=== PATIENT | male | born 1985 | race Caucasian/White ===

== ENCOUNTER 2019-01-06 22:07 | Inpatient (IN) | payer OTHER ==
[~2019-01-06] VITALS: Ht 167.6 cm; Wt 105.2 kg
[2019-01-07] MEDS ORDERED: ONDANSETRON 4 MG INJ IV PRN (01:00)
[2019-01-07] MEDS ORDERED: ACETAMINOPHEN 325 MG TAB PO PRN ×2 (01:00→04:00)
--- NOTE | 2019-01-07 02:18 | ERD ---
ER Documentation Chief Complaint Chief Complaint C/O LT SIDED CP X1 WEEK, FELT FAINT TODAY X3 EPISODES W/ LT ARM NUMBNESS HPI This is a 33-year-old male with complaints of left-sided chest pain for 1 week. He said he almost passed out today. Patient has history of endocarditis with residual cardiomyopathy. Denies any fevers or chills. Chest pain was pressure- like substernal non-positional nonexertional no exacerbating alleviating factors. Tended to come in waves of 10 to 15 minutes and was followed by this. The feeling like he was going to pass out. ROS All systems reviewed and are negative except as per history of present illness. Medications Home Meds No Active Prescriptions or Reported Meds Allergies Allergies: Coded Allergies: No Known Allergy (Verified Allergy, Unknown, 05/26/08) PMhx/Soc History of Surgery: No Anesthesia Reaction: No Hx Neurological Disorder: No Hx Respiratory Disorders: No Hx Cardiac Disorders: Yes (HEART MURMUR) Hx Psychiatric Problems: No Hx Miscellaneous Medical Probl: No Hx Alcohol Use: No Hx Substance Use: No Hx Tobacco Use: No Smoking Status: Never smoker Physical Exam Vitals Vital Signs Date Temp Pulse Resp B/P (MAP) Pulse Ox O2 O2 Flow FiO2 Time Delivery Rate 01/06/19 98.5 83 20 129/83 98 Room Air 23:10 (98) 01/06/19 98.5 84 20 129/83 98 22:22 (98) Physical Exam Const: No acute distress Head: Atraumatic Eyes: Normal Conjunctiva ENT: Normal External Ears, Nose and Mouth. Neck: Full range of motion. No meningismus. Resp: Clear to auscultation bilaterally Cardio: Regular rate and rhythm, no murmurs Abd: Soft, non tender, non distended. Normal bowel sounds Skin: No petechiae or rashes Back: No midline or flank tenderness Ext: No cyanosis, or edema Neur: Awake and alert Psych: Normal Mood and Affect Result Diagram: 01/06/196 01/06/196 Results 24 hrs Laboratory Tests Test 01/06/19 23:26 White Blood Count 10.2 10^3/ul Red Blood Count 4.69 10^6/ul Hemoglobin 13.8 g/dl Hematocrit 41.3 % Mean Corpuscular Volume 88.1 fl Mean Corpuscular Hemoglobin 29.4 pg Mean Corpuscular Hemoglobin Concent 33.4 g/dl Red Cell Distribution Width 12.4 % Platelet Count 323 10^3/UL Mean Platelet Volume 9.4 fl Immature Granulocytes % 0.400 % Neutrophils % 52.8 % Lymphocytes % 35.9 % Monocytes % 7.6 % Eosinophils % 2.9 % Basophils % 0.4 % Nucleated Red Blood Cells % 0.0 /100WBC Immature Granulocytes # 0.040 10^3/ul Neutrophils # 5.4 10^3/ul Lymphocytes # 3.7 10^3/ul Monocytes # 0.8 10^3/ul Eosinophils # 0.3 10^3/ul Basophils # 0.0 10^3/ul Nucleated Red Blood Cells # 0.0 10^3/ul Sodium Level 141 mmol/L Potassium Level 4.2 mmol/L Chloride Level 104 mmol/L Carbon Dioxide Level 27 mmol/L Anion Gap 10 Blood Urea Nitrogen 16 mg/dl Creatinine 0.88 mg/dl Est Glomerular Filtrat Rate mL/min > 60 mL/min Glucose Level 111 mg/dl Calcium Level 9.2 mg/dl Total Bilirubin 0.7 mg/dl Direct Bilirubin 0.00 mg/dl Indirect Bilirubin 0.7 mg/dl Aspartate Amino Transf (AST/SGOT) 27 IU/L Alanine Aminotransferase (ALT/SGPT) 54 IU/L Alkaline Phosphatase 100 IU/L Troponin I 0.017 ng/ml B-Type Natriuretic Peptide 204 PG/ML Total Protein 7.6 g/dl Albumin 4.5 g/dl Globulin 3.10 g/dl Albumin/Globulin Ratio 1.45 Current Medications Medications Dose Sig/Dereje Start Time Status Last (Trade) Ordered Route PRN Stop Time Admin Dose Reason Admin Ondansetron 4 mg ER BRIDGE 01/07/19 HCl (Zofran PRN IV 01:00 01/08/19 Inj) NAUSEA/VOMITI 00:59 NG 650 mg ER BRIDGE 01/07/19 Acetaminophen PRN PO 01:00 01/08/19 (Tylenol .MILD PAIN 00:59 Tab) 1-3 OR TEMP Procedures/MDM EKG: Rate/Rhythm: Normal Sinus Rhythm QRS, ST, T-waves: T wave inversions in V5 and V6 Impression: Borderline EKG Chest X-ray 1V Interpreted by me: Soft Tissue: No acute abnorma lities Bones: No acute abnormalities Mediastinum/Cardiac Silhouette/Lungs: No acute abnormalities Medical decision making: Patient's symptoms are concerning for cardiac cause will require inpatient workup and continuous monitoring. Further w/u for ischemia, arrhythmia, PE or dissection will be deferred to the inpatient team. Accepting Care Team: Current data and ongoing care discussed. Time: 12 AM Primary Provider: Dr. Gill who is on-call for primary Consulting: Deferred to inpatient team Outstanding Data: none Departure Diagnosis: Primary Impression: Chest pain Chest pain type: unspecified Qualified Codes: R07.9 - Chest pain, unspecified Condition: Serious HANK LINDSAY Jan 07, 2019 02:18
[2019-01-07 04:00] VITALS: BP 113/72; PULSE 69; RESP 20
[2019-01-07] MEDS ORDERED: NACL 0.9% 3 ML SYG IV SCH (04:00)
[2019-01-07] MEDS ORDERED: NITROGLYCERIN (SL) 0.4 MG TAB SL PRN (04:00)
[2019-01-07 04:01] VITALS: Ht 167.6 cm; Wt 105.2 kg
[2019-01-07 07:27] VITALS: BP 98/64; PULSE 72; RESP 18
--- NOTE | 2019-01-07 10:30 | HP ---
Date/Time of Note Date/Time of Note DATE: 01/07/19 TIME: 10:29 Assessment/Plan VTE Prophylaxis Risk score (from Ns)>0 risk: 1 SCD applied (from [facility] – [place], [place]): No SCD contraindicated: other Pharmacological prophylaxis: LMWH Lines/Catheters IV C[facility]ter Type (from [facility] Saline Lock Assessment/Plan Hospital Course 1) chest pain - acute coronary syndrome ruled out by negative enzymes - patient stable to go home to follow up with his regular physician. Result Diagram: 01/07/19 0543 01/07/19 0543 Results 24hrs Laboratory Tests Test 01/06/19 23:26 01/07/19 05:43 White Blood Count 10.2 8.9 Red Blood Count 4.69 L 4.65 L Hemoglobin 13.8 L 13.7 L Hematocrit 41.3 L 41.0 L Mean Corpuscular Volume 88.1 88.2 Mean Corpuscular Hemoglobin 29.4 29.5 Mean Corpuscular Hemoglobin Concent 33.4 33.4 Red Cell Distribution Width 12.4 12.4 Platelet Count 323 296 Mean Platelet Volume 9.4 9.5 Immature Granulocytes % 0.400 0.200 Neutrophils % 52.8 49.7 Lymphocytes % 35.9 38.3 Monocytes % 7.6 7.9 Eosinophils % 2.9 3.5 Basophils % 0.4 0.4 Nucleated Red Blood Cells % 0.0 0.0 Immature Granulocytes # 0.040 H 0.020 Neutrophils # 5.4 4.4 Lymphocytes # 3.7 H 3.4 H Monocytes # 0.8 0.7 Eosinophils # 0.3 0.3 Basophils # 0.0 0.0 Nucleated Red Blood Cells # 0.0 0.0 Sodium Level 141 139 Potassium Level 4.2 4.1 Chloride Level 104 105 Carbon Dioxide Level 27 25 Anion Gap 10 9 Blood Urea Nitrogen 16 13 Creatinine 0.88 0.86 Est Glomerular Filtrat Rate mL/min > 60 > 60 Glucose Level 111 97 Calcium Level 9.2 9.2 Total Bilirubin 0.7 Direct Bilirubin 0.00 Indirect Bilirubin 0.7 Aspartate Amino Transf (AST/SGOT) 27 Alanine Aminotransferase (ALT/SGPT) 54 Alkaline Phosphatase 100 Troponin I 0.017 0.022 B-Type Natriuretic Peptide 204 H Total Protein 7.6 Albumin 4.5 Globulin 3.10 Albumin/Globulin Ratio 1.45 Creatine Kinase 78 Creatine Kinase Index 1.8 Creatinine Kinase MB (Mass) 1.39 HPI/ROS Admit Date/Time Admit Date/Time Jan 07, 2019 at 00:39 Hx of Present Illness Patient without significant medical problems comes in with 5 days of pain in the chest that he characterize as pressure but is tender to palpation. He denies any associated shortness of breath or nausea or vomiting. Patient is currently chest pain free. PMH/Family/Social Past Medical History Medications Current Medications Acetaminophen (Tylenol Tab) 650 mg Q4H PRN PO MILD PAIN(1-3)OR ELEVATED TEMP; Start 01/07/19 at 04:00 Nitroglycerin (Nitroglycerin (Sl Tab) 0.4 Mg) 1 tab Q5M PRN SL ANGINA; Start 01/07/19 at 04:00 IV Flush (NS 3 ml) 3 ml Q8H and PRN adm IV ; Start 01/07/19 at 04:00 Coded Allergies: No Known Allergy (Verified Allergy, Unknown, 05/26/08) Social History Smoking Status: Never smoker Exam/Review of Systems Vital Signs Vitals Vital Signs Date Temp Pulse Resp B/P (MAP) Pulse Ox O2 O2 Flow FiO2 Time Delivery Rate 01/07/19 98.7 72 18 98/64 (75) 96 Room Air 07:27 Intake and Output 01/06/19 01/06/19 01/07/19 1515:00 23:00 07:00 IntakeIntake Total 250 ml BalanceBalance 250 ml Exam Constitutional: well developed Head: normocephalic, atraumatic Neck: supple Respiratory: diminished breath sounds Cardiovascular: regular rate and rhythm Gastrointestinal: soft, non-tender Extremities: normal pulses FRANNIE MAN Jan 07, 2019 10:30
--- NOTE | 2019-01-07 10:32 | DS ---
Date/Time of Note Date/Time of Note DATE: 01/07/19 TIME: 10:30 Discharge Summary Admission/Discharge Info Admit Date/Time Jan 07, 2019 at 00:39 Discharge Date/Time 01/07/19 Discharge Diagnosis 1) chest pain - acute coronary syndrome ruled out by negative enzymes - patient stable to go home to follow up with his regular physician. Patient Condition: Fair Consults none Hx of Present Illness Patient without significant medical problems comes in with 5 days of pain in the chest that he characterize as pressure but is tender to palpation. He denies any associated shortness of breath or nausea or vomiting. Patient is currently chest pain free. Hospital Course Patient comes in with chest pain. He had negative troponins and his chest pain had resolved. Patient is stable and will go home to follow up with his regular physician. Patient did have a minor elevation in BNP and I recommended that the patient see his regular physician to be referred to cardiology for baseline echocardiogram. 1) chest pain - acute coronary syndrome ruled out by negative enzymes - patient stable to go home to follow up with his regular physician. Home Meds No Active Prescriptions or Reported Meds Primary Care Provider Care Physician No Primary Pending Labs Laboratory Tests Test 01/06/19 23:26 01/07/19 05:43 White Blood Count 10.2 10^3/ul (4.8-10.8) 8.9 10^3/ul (4.8-10.8) Red Blood Count 4.69 10^6/ul (4.70-6.10) 4.65 10^6/ul (4.70-6.10) Hemoglobin 13.8 g/dl (14.0-18.0) 13.7 g/dl (14.0-18.0) Hematocrit 41.3 % (42.0-52.0) 41.0 % (42.0-52.0) Mean Corpuscular Volume 88.1 fl (82.0-101.0) 88.2 fl (82.0-101.0) Mean Corpuscular 29.4 pg (29.0-33.0) 29.5 pg (29.0-33.0) Hemoglobin Mean Corpuscular 33.4 g/dl (32.0-37.0) 33.4 g/dl (32.0-37.0) Hemoglobin Concent Red Cell Distribution 12.4 % (11.5-14.5) 12.4 % (11.5-14.5) Width Platelet Count 323 10^3/UL (140-415) 296 10^3/UL (140-415) Mean Platelet Volume 9.4 fl (7.4-10.4) 9.5 fl (7.4-10.4) Immature Granulocytes % 0.400 % (0.001-0.429) 0.200 % (0.001-0.429) Neutrophils % 52.8 % (39.0-77.0) 49.7 % (39.0-77.0) Lymphocytes % 35.9 % (15.0-51.0) 38.3 % (15.0-51.0) Monocytes % 7.6 % (0.0-11.0) 7.9 % (0.0-11.0) Eosinophils % 2.9 % (0.0-7.0) 3.5 % (0.0-7.0) Basophils % 0.4 % (0.0-2.0) 0.4 % (0.0-2.0) Nucleated Red Blood Cells 0.0 /100WBC (0.0-0.0) 0.0 /100WBC (0.0-0.0) % Immature Granulocytes # 0.040 10^3/ul (0.0-0.031) 0.020 10^3/ul (0.0-0.031) Neutrophils # 5.4 10^3/ul (1.6-7.5) 4.4 10^3/ul (1.6-7.5) Lymphocytes # 3.7 10^3/ul (0.8-2.9) 3.4 10^3/ul (0.8-2.9) Monocytes # 0.8 10^3/ul (0.3-0.9) 0.7 10^3/ul (0.3-0.9) Eosinophils # 0.3 10^3/ul (0.0-0.5) 0.3 10^3/ul (0.0-0.5) Basophils # 0.0 10^3/ul (0.0-0.1) 0.0 10^3/ul (0.0-0.1) Nucleated Red Blood Cells 0.0 10^3/ul (0.0-0.0) 0.0 10^3/ul (0.0-0.0) # Sodium Level 141 mmol/L (135-144) 139 mmol/L (135-144) Potassium Level 4.2 mmol/L (3.5-5.1) 4.1 mmol/L (3.5-5.1) Chloride Level 104 mmol/L (97-110) 105 mmol/L (97-110) Carbon Dioxide Level 27 mmol/L (21-31) 25 mmol/L (21-31) Anion Gap 10 (5-13) 9 (5-13) Blood Urea Nitrogen 16 mg/dl (7-20) 13 mg/dl (7-20) Creatinine 0.88 mg/dl (0.61-1.24) 0.86 mg/dl (0.61-1.24) Est Glomerular Filtrat > 60 mL/min (>60) > 60 mL/min (>60) Rate mL/min Glucose Level 111 mg/dl (70-220) 97 mg/dl (70-220) Calcium Level 9.2 mg/dl (8.4-10.2) 9.2 mg/dl (8.4-10.2) Total Bilirubin 0.7 mg/dl (0.2-1.3) Direct Bilirubin 0.00 mg/dl (0.00-0.20) Indirect Bilirubin 0.7 mg/dl (0-1.1) Aspartate Amino 27 IU/L (15-46) Transf (AST/SGOT) Alanine 54 IU/L (13-69) Aminotransferase (ALT/SGPT ) Alkaline Phosphatase 100 IU/L (42-121) Troponin I 0.017 ng/ml (0.000-0.120) 0.022 ng/ml (0.000-0.120) B-Type Natriuretic 204 PG/ML (0-125) Peptide Total Protein 7.6 g/dl (6.1-8.1) Albumin 4.5 g/dl (3.3-4.9) Globulin 3.10 g/dl (1.3-3.2) Albumin/Globulin Ratio 1.45 Creatine Kinase 78 IU/L (23-200) Creatine Kinase Index 1.8 Creatinine Kinase MB 1.39 ng/ml (0.0-2.4) (Mass) FRANNIE MAN Jan 07, 2019 10:32
== END 2019-01-07 11:44 | disposition home or self-care (01) | DRG 313 ==
LOC: E/R 22:07 → 6WM 01-07 00:39
PROVIDERS: ADMIT Internal Medicine; ATTEND Internal Medicine
DX: R07.9 Chest pain, unspecified (principal)
CPT/HCPCS: 36415; 71045; 80048; 80053; 82550; 82553; 83880; 84484; 85025; 93005